=== PATIENT | male | born 1965 | race Two or more races ===

== ENCOUNTER 2016-09-17 22:20 | Inpatient (IN) | payer SELFPAY ==
[~2016-09-17] VITALS: Ht 170.2 cm; Wt 60.8 kg
[2016-09-17] MEDS ORDERED: CEFTRIAXONE 1GM BAG (ER ONLY) 50 ML IV ONE (23:00)
[2016-09-17] MEDS ORDERED: VANCOMYCIN 1 GM in IV D5W 250 ML IV ONE (23:00)
[2016-09-17] MEDS ORDERED: HYDROMORPHONE 1 MG/1 ML DISP.SYRIN IV ONE (23:00)
[2016-09-17] MEDS ORDERED: ONDANSETRON HCL/PF 4 MG/2 ML VIAL IVP ONE (23:00)
[2016-09-17] MEDS ORDERED: ONDANSETRON HCL/PF 4 MG/2 ML VIAL ONE (23:40)
[2016-09-17] MEDS ORDERED: HYDROMORPHONE 1 MG/1 ML DISP.SYRIN ONE (23:40)
[2016-09-17 23:59] LABS: BASOPHILS % (AUTO) 0.2 % (0.0-2.0); DIFF TOTAL % 100 %; EOSINOPHILS % (AUTO) 0.1 % (0.0-6.0); HEMATOCRIT 34 % (39-51); HEMOGLOBIN 11.1 g/dL (13.5-17.5); LYMPHOCYTES # (AUTO) 3.1 /CMM (0.8-4.8); LYMPHOCYTES % (AUTO) 23.1 % (20.0-44.0); MEAN CORPUSCULAR HEMOGLOBIN 26 PG (26.0-33.0); MEAN CORPUSCULAR HGB CONC 33 g/dl (31.0-36.0); MEAN CORPUSCULAR VOLUME 78 fL (80-96); MONOCYTES # (AUTO) 1.5 /CMM (0.1-1.30); MONOCYTES % (AUTO) 11.1 % (2.0-12.0); NEUTROPHILS # (AUTO) 8.8 /CMM (1.8-8.9); NEUTROPHILS % (AUTO) 65.5 % (43.0-81.0); PLATELET COUNT (AUTO) 275 /CMM (150-450); RED BLOOD CELL COUNT(AUTO) 4.31 MIL/uL (4.5-6.0); WHITE BLOOD COUNT (AUTO) 13.4 K/uL (4.3-11.0)
[2016-09-18] MEDS ORDERED: CEFTRIAXONE 1GM BAG (ER ONLY) 50 ML IV ONE (00:02)
[2016-09-18] MEDS ORDERED: IV SET PRIMARY PUMP SET 1 EA INFUS.SET MC ONE ×4 (00:02→06:15)
[2016-09-18 00:06] LABS: ANION GAP 23 (5-14); CARBON DIOXIDE 20 mmol/L (21-32); CHLORIDE 98 mmol/L (98-107); GFR 79 mL/min (>60); GLUCOSE 124 mg/dL (74-106); POTASSIUM 3.1 mmol/L (3.5-5.1); SODIUM SERUM 138 mmol/L (136-145); UREA NITROGEN, BLOOD 13 mg/dL (7-18)
[2016-09-18 00:09] LABS: INR 1.07 (0.87-1.13); PROTHROMBIN TIME 11.6 SECS (9.5-12.7)
[2016-09-18 00:12] LABS: ALANINE AMINOTRANSFERASE 66 U/L (12-78); ALBUMIN 2.7 g/dL (3.4-5.0); ASPARTATE AMINOTRANSFERASE 83 U/L (15-37); BILIRUBIN,DIRECT 0.1 mg/dL (0.0-0.2); BILIRUBIN,TOTAL 0.4 mg/dL (0.2-1.0); INDIRECT BILIRUBIN 0.3 mg/dL (0.0-1.1); TOTAL PROTEIN, SERUM 7.5 g/dL (6.4-8.2)
[2016-09-18 00:32] LABS: LACTIC ACID 3.6 mmol/L (0.4-2.0)
[2016-09-18] MEDS ORDERED: ONDANSETRON HCL/PF 4 MG/2 ML VIAL ONE (00:42)
[2016-09-18] MEDS ORDERED: HYDROMORPHONE 1 MG/1 ML DISP.SYRIN ONE ×2 (00:42→03:52)
[2016-09-18 00:50] LABS: *LACTIC ACID REFLEX FLAG YES
[2016-09-18] MEDS ORDERED: VANCOMYCIN 1 GM VIAL ONE (00:53)
[2016-09-18] MEDS ORDERED: IV SET PRIMARY 1 EA INFUS.SET MC ONE (00:53)
[2016-09-18] MEDS ORDERED: IV NS 0.9% 2,000 ML ONE (00:53)
[2016-09-18 00:54] LABS: KETONES,URINE 3+ (NEGATIVE); LEUKOCYTE ESTERASE ,URINE TRACE (NEGATIVE)
[2016-09-18 01:00] LABS: ADD UA MICROSCOPIC YES
[2016-09-18] MEDS ORDERED: ONDANSETRON HCL/PF - ER 4 MG/2 ML VIAL IV ONE (01:00)
[2016-09-18] MEDS ORDERED: IV NS 0.9% 250 ML IV ONE (01:00)
[2016-09-18] MEDS ORDERED: IV NS 0.9% 1,000 ML BAG IV ONE (01:00)
[2016-09-18] MEDS ORDERED: HYDROMORPHONE 1 MG/1 ML DISP.SYRIN IV ONE (01:00)
[2016-09-18] MEDS ORDERED: IV D5W 250 ML IV ONE (01:07)
[2016-09-18 01:09] LABS: ADD URINE CULTURE YES; RBC,URINE 0-2 /HPF (0-2)
[2016-09-18] MEDS ORDERED: MAG HYDROX/AL HYDROX/SIMETH 30 ML UDC PO PRN (02:00)
[2016-09-18] MEDS ORDERED: MAGNESIUM HYDROXIDE 30 ML UDC PO PRN (02:00)
[2016-09-18] MEDS: CEFTRIAXONE 2 G in IV D5W 100 ML IV SCH (02:00)
[2016-09-18] MEDS ORDERED: ONDANSETRON HCL/PF 4 MG/2 ML VIAL IVP PRN (02:00)
[2016-09-18] MEDS ORDERED: Z GUARD REMEDY 2 OZ OINT TP PRN (02:00)
[2016-09-18 02:30] VITALS: BP 139/67
[2016-09-18 02:49] VITALS: BP 139/67
[2016-09-18] MEDS ORDERED: IV NS 0.9% 1,000 ML ONE (03:40)
[2016-09-18] MEDS ORDERED: SECONDARY IV SET 1 EA INFUS.SET MC ONE (03:40)
[2016-09-18] MEDS ORDERED: POTASSIUM CL. PREMIX PERIPHER. 100 ML ONE (03:42)
[2016-09-18] MEDS: IV NS 0.9% 1,000 ML IV PRN ×2 (03:46→21:38)
[2016-09-18] MEDS: POTASSIUM CL. PREMIX PERIPHER. 50 ML IV SCH ×3 (03:47→05:19)
[2016-09-18] MEDS: HYDROMORPHONE 1 MG/1 ML DISP.SYRIN IV PRN ×3 (03:58→14:15)
[2016-09-18] MEDS ORDERED: MORPHINE SULFATE INJ 2 MG/ML DISP.SYRIN IV PRN (04:00)
[2016-09-18] MEDS: PANTOPRAZOLE 40 MG TABLET.DR PO SCH (07:30)
[2016-09-18] MEDS ORDERED: FEE PK DOSING 1 MIN EA MC ONE (08:01)
[2016-09-18 10:40] LABS: BASOPHILS % (AUTO) 0.5 % (0.0-2.0); DIFF TOTAL % 100 %; EOSINOPHILS % (AUTO) 0.1 % (0.0-6.0); HEMATOCRIT 31 % (39-51); HEMOGLOBIN 10.3 g/dL (13.5-17.5); LYMPHOCYTES # (AUTO) 1.4 /CMM (0.8-4.8); LYMPHOCYTES % (AUTO) 15.5 % (20.0-44.0); MEAN CORPUSCULAR HEMOGLOBIN 26 PG (26.0-33.0); MEAN CORPUSCULAR HGB CONC 33 g/dl (31.0-36.0); MEAN CORPUSCULAR VOLUME 78 fL (80-96); MONOCYTES % (AUTO) 10.8 % (2.0-12.0); NEUTROPHILS # (AUTO) 6.8 /CMM (1.8-8.9); NEUTROPHILS % (AUTO) 73.1 % (43.0-81.0); PLATELET COUNT (AUTO) 251 /CMM (150-450); RED BLOOD CELL COUNT(AUTO) 3.97 MIL/uL (4.5-6.0); WHITE BLOOD COUNT (AUTO) 9.3 K/uL (4.3-11.0)
[2016-09-18 10:53] LABS: ALBUMIN 2.4 g/dL (3.4-5.0); BILIRUBIN,TOTAL 0.8 mg/dL (0.2-1.0); CALCIUM, SERUM 7.8 mg/dL (8.5-10.1); CREATININE 0.7 mg/dL (0.6-1.3); PHOSPHORUS 2.8 mg/dL (2.5-4.9); POTASSIUM 3.2 mmol/L (3.5-5.1); TOTAL PROTEIN, SERUM 6.8 g/dL (6.4-8.2)
[2016-09-18] MEDS ORDERED: HYDROGEL DRESSING 90 GM TUBE TP PRN (11:00)
[2016-09-18 11:01] LABS: THYROID STIMULATING HORMONE 1.145 uIU/mL (0.358-3.74)
[2016-09-18] MEDS: POTASSIUM CHLORIDE 20 MEQ TAB.PRT.SR PO SCH ×2 (12:30→13:43)
[2016-09-18] MEDS ORDERED: SILVER NITRATE APPLICATOR 1 EA BOX TP ONE ×2 (13:00)
[2016-09-18] MEDS ORDERED: LIDOCAINE 1%-EPI 1:100,000 20 ML VIAL TP ONE (13:00)
[2016-09-18] MEDS: VANCOMYCIN 1 GM in IV D5W 250 ML IV SCH ×2 (13:00→13:44)
[2016-09-18] MEDS: HYDROGEL DRESSING 90 GM TUBE TP SCH (13:44)
[2016-09-18] MEDS: DAKINS QUARTER STRENGTH (0.125%) 480 ML BOTTLE TOP SCH (13:44)
[2016-09-18] MEDS ORDERED: LIDOCAINE 1%-EPI 1:100,000 50 ML VIAL IJ ONE (14:00)
[2016-09-18 16:00] VITALS: BP 134/74
[2016-09-18] MEDS: CLONIDINE HCL 0.2MG/24H PTWK 1 EA PATCH TD SCH (16:00)
[2016-09-18] MEDS: ALPRAZOLAM 0.25 MG TABLET PO SCH (16:09)
[2016-09-18] MEDS: GABAPENTIN 300 MG CAPSULE PO SCH (16:51)
[2016-09-18] MEDS: oxyCODONE IR immediate release 5 MG CAPSULE PO PRN ×2 (16:55→23:02)
[2016-09-18] MEDS ORDERED: COD LIVER OIL/ZINC OXIDE 120 GM TUBE TP SCH (17:30)
[2016-09-18 20:15] VITALS: BP 130/81
[2016-09-18] MEDS: LINEZOLID 600 MG TABLET PO SCH (21:00)
[2016-09-18] MEDS: CITALOPRAM HYDROBROMIDE 10 MG TABLET PO SCH (21:49)
[2016-09-19] MEDS ORDERED: LOPERAMIDE HCL (2 MG CAP) 2 MG CAPSULE PO PRN (01:00)
[2016-09-19] MEDS ORDERED: SECONDARY IV SET 1 EA INFUS.SET MC ONE (02:07)
[2016-09-19] MEDS ORDERED: LOPERAMIDE HCL (2 MG CAP) 2 MG CAPSULE PO ONE (02:07)
[2016-09-19] MEDS: CEFTRIAXONE 2 G in IV D5W 100 ML IV SCH (02:12)
[2016-09-19] MEDS: oxyCODONE IR immediate release 5 MG CAPSULE PO PRN ×4 (02:13→15:05)
[2016-09-19] MEDS: IV NS 0.9% 1,000 ML IV PRN ×2 (06:34→14:41)
[2016-09-19] MEDS: PANTOPRAZOLE 40 MG TABLET.DR PO SCH (06:47)
[2016-09-19] MEDS: ALPRAZOLAM 0.25 MG TABLET PO SCH ×2 (08:46→17:13)
[2016-09-19] MEDS: LINEZOLID 600 MG TABLET PO SCH ×2 (08:47→21:00)
[2016-09-19] MEDS: GABAPENTIN 300 MG CAPSULE PO SCH ×3 (08:47→17:13)
[2016-09-19] MEDS: DAKINS QUARTER STRENGTH (0.125%) 480 ML BOTTLE TOP SCH (09:00)
[2016-09-19] MEDS: HYDROGEL DRESSING 90 GM TUBE TP SCH (09:00)
[2016-09-19] MEDS: ZINC OXIDE 30 GM TUBE TP SCH (09:00)
[2016-09-19 17:27] LABS: CALCIUM, SERUM 7.6 mg/dL (8.5-10.1); CREATININE 0.7 mg/dL (0.6-1.3); POTASSIUM 3.6 mmol/L (3.5-5.1)
[2016-09-19 20:00] VITALS: BP 133/80
[2016-09-19 22:00] VITALS: BP 133/80
[2016-09-19] MEDS: CITALOPRAM HYDROBROMIDE 10 MG TABLET PO SCH (22:00)
[2016-09-20] MEDS: CEFTRIAXONE 2 G in IV D5W 100 ML IV SCH (02:29)
[2016-09-20] MEDS: oxyCODONE IR immediate release 5 MG CAPSULE PO PRN ×3 (05:50→21:09)
[2016-09-20] MEDS: PANTOPRAZOLE 40 MG TABLET.DR PO SCH (07:30)
[2016-09-20] MEDS: ALPRAZOLAM 0.25 MG TABLET PO SCH ×2 (08:54→16:44)
[2016-09-20] MEDS: LINEZOLID 600 MG TABLET PO SCH (08:54)
[2016-09-20] MEDS: GABAPENTIN 300 MG CAPSULE PO SCH ×3 (08:54→16:44)
[2016-09-20] MEDS: BOOST PLUS FOOD-CHOCLATE 237 ML BOX PO SCH (08:55)
[2016-09-20] MEDS: HYDROGEL DRESSING 90 GM TUBE TP SCH (08:57)
[2016-09-20] MEDS: DAKINS QUARTER STRENGTH (0.125%) 480 ML BOTTLE TOP SCH (08:58)
[2016-09-20] MEDS: ZINC OXIDE 30 GM TUBE TP SCH (08:58)
[2016-09-20] MEDS: IV NS 0.9% 1,000 ML IV PRN ×2 (11:15→21:10)
[2016-09-20] MEDS: LACTOBACILLUS RHAMNOSUS GG 1 EACH CAP.SPRINK PO SCH (16:44)
[2016-09-20] MEDS: SULFAMETH/TRIMETH 800/160 MG 1 UDTAB TABLET PO SCH (21:00)
[2016-09-20] MEDS: CITALOPRAM HYDROBROMIDE 10 MG TABLET PO SCH (22:00)
[2016-09-21] MEDS: oxyCODONE IR immediate release 5 MG CAPSULE PO PRN ×5 (01:07→21:21)
[2016-09-21] MEDS: CEFTRIAXONE 2 G in IV D5W 100 ML IV SCH (01:07)
[2016-09-21] MEDS: IV NS 0.9% 1,000 ML IV PRN ×2 (05:46→21:21)
[2016-09-21] MEDS: PANTOPRAZOLE 40 MG TABLET.DR PO SCH (07:23)
[2016-09-21] MEDS: BOOST PLUS FOOD-CHOCLATE 237 ML BOX PO SCH (08:54)
[2016-09-21] MEDS: GABAPENTIN 300 MG CAPSULE PO SCH ×3 (08:54→16:16)
[2016-09-21] MEDS: ALPRAZOLAM 0.25 MG TABLET PO SCH ×2 (08:54→16:16)
[2016-09-21] MEDS: SULFAMETH/TRIMETH 800/160 MG 1 UDTAB TABLET PO SCH ×2 (08:55→21:00)
[2016-09-21] MEDS: HYDROGEL DRESSING 90 GM TUBE TP SCH (08:55)
[2016-09-21] MEDS: DAKINS QUARTER STRENGTH (0.125%) 480 ML BOTTLE TOP SCH (08:55)
[2016-09-21] MEDS: LACTOBACILLUS RHAMNOSUS GG 1 EACH CAP.SPRINK PO SCH ×2 (08:55→16:16)
[2016-09-21] MEDS: ZINC OXIDE 30 GM TUBE TP SCH (08:55)
[2016-09-21 09:26] VITALS: BP 102/56
[2016-09-21 17:56] VITALS: BP 106/59
[2016-09-21 20:00] VITALS: BP 126/76
[2016-09-21] MEDS: CITALOPRAM HYDROBROMIDE 10 MG TABLET PO SCH (21:25)
[2016-09-22] MEDS: CEFTRIAXONE 2 G in IV D5W 100 ML IV SCH (02:06)
[2016-09-22] MEDS: oxyCODONE IR immediate release 5 MG CAPSULE PO PRN ×5 (05:15→22:59)
[2016-09-22] MEDS: PANTOPRAZOLE 40 MG TABLET.DR PO SCH (07:30)
[2016-09-22] MEDS: SULFAMETH/TRIMETH 800/160 MG 1 UDTAB TABLET PO SCH ×2 (09:00→21:00)
[2016-09-22] MEDS: LACTOBACILLUS RHAMNOSUS GG 1 EACH CAP.SPRINK PO SCH ×2 (09:00→16:42)
[2016-09-22] MEDS: GABAPENTIN 300 MG CAPSULE PO SCH ×3 (09:01→16:40)
[2016-09-22] MEDS: ALPRAZOLAM 0.25 MG TABLET PO SCH ×2 (09:01→16:41)
[2016-09-22] MEDS: DAKINS QUARTER STRENGTH (0.125%) 480 ML BOTTLE TOP SCH (09:03)
[2016-09-22] MEDS: HYDROGEL DRESSING 90 GM TUBE TP SCH (09:04)
[2016-09-22] MEDS: ZINC OXIDE 30 GM TUBE TP SCH (09:04)
[2016-09-22] MEDS: BOOST PLUS FOOD-CHOCLATE 237 ML BOX PO SCH (09:19)
[2016-09-22] MEDS ORDERED: BISACODYL SUPP (10 MG) 10 MG/SUPP.RECT SUPP.RECT RC PRN (15:30)
[2016-09-22 20:00] VITALS: BP 136/86
[2016-09-22] MEDS: CITALOPRAM HYDROBROMIDE 10 MG TABLET PO SCH (21:44)
[2016-09-23] MEDS: oxyCODONE IR immediate release 5 MG CAPSULE PO PRN ×5 (03:08→23:44)
[2016-09-23] MEDS: PANTOPRAZOLE 40 MG TABLET.DR PO SCH (07:30)
[2016-09-23 08:00] VITALS: BP 109/66
[2016-09-23] MEDS: ALPRAZOLAM 0.25 MG TABLET PO SCH ×2 (08:01→16:12)
[2016-09-23] MEDS: GABAPENTIN 300 MG CAPSULE PO SCH ×3 (08:01→16:12)
[2016-09-23] MEDS: LACTOBACILLUS RHAMNOSUS GG 1 EACH CAP.SPRINK PO SCH ×2 (08:03→16:12)
[2016-09-23] MEDS: DAKINS QUARTER STRENGTH (0.125%) 480 ML BOTTLE TOP SCH (08:03)
[2016-09-23] MEDS: HYDROGEL DRESSING 90 GM TUBE TP SCH (08:03)
[2016-09-23] MEDS: ZINC OXIDE 30 GM TUBE TP SCH (08:03)
[2016-09-23] MEDS: SULFAMETH/TRIMETH 800/160 MG 1 UDTAB TABLET PO SCH ×2 (08:03→21:00)
[2016-09-23] MEDS: BOOST PLUS FOOD-CHOCLATE 237 ML BOX PO SCH (10:55)
[2016-09-23] MEDS ORDERED: IV SET PRIMARY PUMP SET 1 EA INFUS.SET MC ONE (11:47)
[2016-09-23] MEDS: IV NS 0.9% 1,000 ML IV PRN ×2 (12:36→22:04)
[2016-09-23 16:00] VITALS: BP 107/55
[2016-09-23 20:00] VITALS: BP 113/63
[2016-09-23] MEDS: CITALOPRAM HYDROBROMIDE 10 MG TABLET PO SCH (22:00)
[2016-09-24] MEDS: IV NS 0.9% 1,000 ML IV PRN ×2 (06:23→17:05)
[2016-09-24] MEDS: oxyCODONE IR immediate release 5 MG CAPSULE PO PRN ×5 (06:23→23:27)
[2016-09-24 08:04] VITALS: BP 115/64
[2016-09-24] MEDS: SULFAMETH/TRIMETH 800/160 MG 1 UDTAB TABLET PO SCH ×2 (08:27→21:00)
[2016-09-24] MEDS: LACTOBACILLUS RHAMNOSUS GG 1 EACH CAP.SPRINK PO SCH ×2 (08:27→17:01)
[2016-09-24] MEDS: PANTOPRAZOLE 40 MG TABLET.DR PO SCH (08:27)
[2016-09-24] MEDS: ALPRAZOLAM 0.25 MG TABLET PO SCH ×2 (08:27→17:00)
[2016-09-24] MEDS: GABAPENTIN 300 MG CAPSULE PO SCH ×3 (08:27→17:00)
[2016-09-24] MEDS: ZINC OXIDE 30 GM TUBE TP SCH (08:27)
[2016-09-24] MEDS: BOOST PLUS FOOD-CHOCLATE 237 ML BOX PO SCH (08:30)
[2016-09-24] MEDS: DAKINS QUARTER STRENGTH (0.125%) 480 ML BOTTLE TOP SCH (08:30)
[2016-09-24] MEDS: HYDROGEL DRESSING 90 GM TUBE TP SCH (08:34)
[2016-09-24 09:21] VITALS: BP 115/64
[2016-09-24 15:41] VITALS: BP 137/70
[2016-09-24 20:00] VITALS: BP 131/70
[2016-09-24] MEDS: CITALOPRAM HYDROBROMIDE 10 MG TABLET PO SCH (21:34)
[2016-09-25] MEDS: IV NS 0.9% 1,000 ML IV PRN ×3 (00:38→16:34)
[2016-09-25] MEDS: oxyCODONE IR immediate release 5 MG CAPSULE PO PRN ×5 (03:38→20:35)
[2016-09-25 08:00] VITALS: BP 137/85
[2016-09-25] MEDS: GABAPENTIN 300 MG CAPSULE PO SCH ×3 (08:12→16:29)
[2016-09-25] MEDS: PANTOPRAZOLE 40 MG TABLET.DR PO SCH (08:12)
[2016-09-25] MEDS: LACTOBACILLUS RHAMNOSUS GG 1 EACH CAP.SPRINK PO SCH ×2 (08:12→16:29)
[2016-09-25] MEDS: ALPRAZOLAM 0.25 MG TABLET PO SCH ×2 (08:12→16:29)
[2016-09-25] MEDS: HYDROGEL DRESSING 90 GM TUBE TP SCH (08:13)
[2016-09-25] MEDS: BOOST PLUS FOOD-CHOCLATE 237 ML BOX PO SCH (08:16)
[2016-09-25] MEDS: DAKINS QUARTER STRENGTH (0.125%) 480 ML BOTTLE TOP SCH (08:16)
[2016-09-25] MEDS: SULFAMETH/TRIMETH 800/160 MG 1 UDTAB TABLET PO SCH ×2 (08:17→20:37)
[2016-09-25 08:33] VITALS: BP 137/85
[2016-09-25 16:00] VITALS: BP 134/79
[2016-09-25] MEDS: ZINC OXIDE 30 GM TUBE TP SCH (16:28)
[2016-09-25] MEDS: CLONIDINE HCL 0.2MG/24H PTWK 1 EA PATCH TD SCH (16:29)
[2016-09-25 20:00] VITALS: BP 149/82
[2016-09-25] MEDS: CITALOPRAM HYDROBROMIDE 10 MG TABLET PO SCH (22:00)
[2016-09-25] MEDS ORDERED: HYDROMORPHONE 1 MG/1 ML DISP.SYRIN IV ONE (23:00)
[2016-09-25] MEDS ORDERED: HYDROMORPHONE 1 MG/1 ML DISP.SYRIN IV PRN (23:00)
[2016-09-25] MEDS ORDERED: HYDROMORPHONE 1 MG/1 ML DISP.SYRIN ONE (23:08)
[2016-09-26] MEDS: oxyCODONE IR immediate release 5 MG CAPSULE PO PRN ×7 (01:00→21:36)
[2016-09-26] MEDS: PANTOPRAZOLE 40 MG TABLET.DR PO SCH (07:30)
[2016-09-26 08:00] VITALS: BP 150/79
[2016-09-26] MEDS ORDERED: IV SET PRIMARY PUMP SET 1 EA INFUS.SET MC ONE (08:16)
[2016-09-26] MEDS: SULFAMETH/TRIMETH 800/160 MG 1 UDTAB TABLET PO SCH ×2 (08:41→21:36)
[2016-09-26] MEDS: DAKINS QUARTER STRENGTH (0.125%) 480 ML BOTTLE TOP SCH (08:42)
[2016-09-26] MEDS: HYDROGEL DRESSING 90 GM TUBE TP SCH (08:42)
[2016-09-26] MEDS: ALPRAZOLAM 0.25 MG TABLET PO SCH ×2 (08:42→16:24)
[2016-09-26] MEDS: GABAPENTIN 300 MG CAPSULE PO SCH ×3 (08:42→16:24)
[2016-09-26] MEDS: BOOST PLUS FOOD-CHOCLATE 237 ML BOX PO SCH (08:42)
[2016-09-26] MEDS: ZINC OXIDE 30 GM TUBE TP SCH (08:42)
[2016-09-26] MEDS: LACTOBACILLUS RHAMNOSUS GG 1 EACH CAP.SPRINK PO SCH ×2 (08:42→16:45)
[2016-09-26 16:00] VITALS: BP 96/50
[2016-09-26 21:00] VITALS: BP 112/67
[2016-09-26] MEDS: IV NS 0.9% 1,000 ML IV PRN (21:41)
[2016-09-26] MEDS: CITALOPRAM HYDROBROMIDE 10 MG TABLET PO SCH (22:00)
[2016-09-27] MEDS: oxyCODONE IR immediate release 5 MG CAPSULE PO PRN ×5 (01:30→17:28)
[2016-09-27] MEDS ORDERED: IBUPROFEN 400 MG TABLET PO ONE (03:30)
[2016-09-27] MEDS ORDERED: IBUPROFEN 400 MG TABLET ONE (03:45)
[2016-09-27 08:00] VITALS: BP 102/51
[2016-09-27] MEDS: ZINC OXIDE 30 GM TUBE TP SCH (09:00)
[2016-09-27] MEDS: HYDROGEL DRESSING 90 GM TUBE TP SCH (09:00)
[2016-09-27] MEDS: DAKINS QUARTER STRENGTH (0.125%) 480 ML BOTTLE TOP SCH (09:00)
[2016-09-27] MEDS: PANTOPRAZOLE 40 MG TABLET.DR PO SCH (09:07)
[2016-09-27] MEDS: BOOST PLUS FOOD-CHOCLATE 237 ML BOX PO SCH (09:07)
[2016-09-27] MEDS: SULFAMETH/TRIMETH 800/160 MG 1 UDTAB TABLET PO SCH (09:07)
[2016-09-27] MEDS: GABAPENTIN 300 MG CAPSULE PO SCH ×3 (09:07→17:00)
[2016-09-27] MEDS: LACTOBACILLUS RHAMNOSUS GG 1 EACH CAP.SPRINK PO SCH ×2 (09:07→17:00)
[2016-09-27] MEDS: ALPRAZOLAM 0.25 MG TABLET PO SCH ×2 (09:08→17:00)
[2016-09-27] MEDS: IV NS 0.9% 1,000 ML IV PRN (10:58)
== END 2016-09-27 17:30 | disposition home or self-care (01) | DRG 871 ==
LOC: ER 22:21 → MEDSG2 09-18 01:40
PROVIDERS: ADMIT Contractor; ATTEND Contractor
DX: A41.9 Sepsis, unspecified organism (principal); E43 Unspecified severe protein-calorie malnutrition; L89.324 Pressure ulcer of left buttock, stage 4; G82.20 Paraplegia, unspecified; E87.2 Acidosis; N39.0 Urinary tract infection, site not specified; R45.851 Suicidal ideations; R65.20 Severe sepsis without septic shock; E87.6 Hypokalemia; F32.9 Major depressive disorder, single episode, unspecified; F17.210 Nicotine dependence, cigarettes, uncomplicated; G89.4 Chronic pain syndrome; Z99.3 Dependence on wheelchair; Z59.0 Homelessness; Z87.440 Personal history of urinary (tract) infections; E88.09 Other disorders of plasma-protein metabolism, not elsewhere classified; F19.10 Other psychoactive substance abuse, uncomplicated; N31.9 Neuromuscular dysfunction of bladder, unspecified; F43.10 Post-traumatic stress disorder, unspecified; L98.9 Disorder of the skin and subcutaneous tissue, unspecified; S81.802A Unspecified open wound, left lower leg, initial encounter; S81.801A Unspecified open wound, right lower leg, initial encounter; X58.XXXA Exposure to other specified factors, initial encounter; Y93.9 Activity, unspecified; Y92.9 Unspecified place or not applicable; Y99.9 Unspecified external cause status; F29 Unspecified psychosis not due to a substance or known physiological condition; B96.20 Unspecified Escherichia coli [E. coli] as the cause of diseases classified elsewhere; B95.62 Methicillin resistant Staphylococcus aureus infection as the cause of diseases classified elsewhere; B96.4 Proteus (mirabilis) (morganii) as the cause of diseases classified elsewhere; S31.000A Unspecified open wound of lower back and pelvis without penetration into retroperitoneum, initial encounter
CPT/HCPCS: 36415; 71010-TC; 80048-TC; 80053-TC; 80061-TC; 80076-TC; 80202-TC; 81000-TC; 83605-TC; 83735-TC; 84100-TC; 84443-TC; 85025-TC; 85730-TC; 87040-TC; 87070-TC; 87081-TC; 87086-TC; 87186-TC; A4606; A6248; A6402; J0696; J1170; J2405; J3370; J3480; J3490; J7030; J7050; J7060; Z7610

== ENCOUNTER 2016-09-30 08:04 | Inpatient (IN) | payer SELFPAY ==
[~2016-09-30] VITALS: Ht 175.3 cm; Wt 82.1 kg
[2016-09-30] MEDS ORDERED: IV NS 0.9% 500 ML BAG IV ONE (08:30)
[2016-09-30 09:13] LABS: BASOPHILS # (AUTO) 0.1 /CMM (0.0-0.2); BASOPHILS % (AUTO) 0.8 % (0.0-2.0); DIFF TOTAL % 100 %; HEMATOCRIT 34 % (39-51); HEMOGLOBIN 11.3 g/dL (13.5-17.5); LYMPHOCYTES # (AUTO) 1.3 /CMM (0.8-4.8); LYMPHOCYTES % (AUTO) 9.3 % (20.0-44.0); MEAN CORPUSCULAR HEMOGLOBIN 26 PG (26.0-33.0); MEAN CORPUSCULAR HGB CONC 33 g/dl (31.0-36.0); MEAN CORPUSCULAR VOLUME 78 fL (80-96); MONOCYTES # (AUTO) 1.4 /CMM (0.1-1.30); NEUTROPHILS # (AUTO) 10.9 /CMM (1.8-8.9); NEUTROPHILS % (AUTO) 79.9 % (43.0-81.0); PLATELET COUNT (AUTO) 294 /CMM (150-450); RED BLOOD CELL COUNT(AUTO) 4.41 MIL/uL (4.5-6.0); WHITE BLOOD COUNT (AUTO) 13.6 K/uL (4.3-11.0)
[2016-09-30 09:20] LABS: KETONES,URINE 1+ (NEGATIVE); LEUKOCYTE ESTERASE ,URINE 2+ (NEGATIVE); PH,URINE 5.5 (5.0-8.0)
[2016-09-30 09:22] LABS: ANION GAP 17 (5-14); CARBON DIOXIDE 25 mmol/L (21-32); CHLORIDE 92 mmol/L (98-107); CREATININE 0.8 mg/dL (0.6-1.3); GFR 103 mL/min (>60); GLUCOSE 82 mg/dL (74-106); POTASSIUM 4.1 mmol/L (3.5-5.1); SODIUM SERUM 129 mmol/L (136-145); UREA NITROGEN, BLOOD 19 mg/dL (7-18)
[2016-09-30 09:23] LABS: ADD UA MICROSCOPIC YES
[2016-09-30 09:28] LABS: ADD URINE CULTURE YES; RBC,URINE 21-50 /HPF (0-2); WBC,URINE 51-80 /HPF (0-3)
[2016-09-30 09:28] LABS: ALANINE AMINOTRANSFERASE 103 U/L (12-78); ALBUMIN 2.9 g/dL (3.4-5.0); ASPARTATE AMINOTRANSFERASE 230 U/L (15-37); BILIRUBIN,DIRECT 0.1 mg/dL (0.0-0.2); BILIRUBIN,TOTAL 0.5 mg/dL (0.2-1.0); INDIRECT BILIRUBIN 0.4 mg/dL (0.0-1.1); TOTAL PROTEIN, SERUM 8.3 g/dL (6.4-8.2)
[2016-09-30 09:29] LABS: MUCUS,URINE Few /LPF (None Seen)
[2016-09-30 09:30] LABS: ACETAMINOPHEN 0 ug/ml (10-30); SALICYLATE 2.2 mg/dL (2.8-20.0)
[2016-09-30 09:32] LABS: PHENCYCLIDINE SCREEN,URINE NEGATIVE (NEGATIVE)
[2016-09-30 09:33] LABS: CANNABINOID, URINE POSITIVE (NEGATIVE)
[2016-09-30] MEDS ORDERED: IV SET PRIMARY PUMP SET 1 EA INFUS.SET MC ONE ×2 (09:38→12:49)
[2016-09-30] MEDS ORDERED: IV SET PRIMARY 1 EA INFUS.SET MC ONE (09:38)
[2016-09-30] MEDS ORDERED: IV NS 0.9% 500 ML IV ONE (09:38)
[2016-09-30] MEDS ORDERED: IV NS 0.9% 1,000 ML ONE (09:38)
[2016-09-30] MEDS: PIPERACILLIN /TAZOBACTAM 3.375 G in IV D5W 50 ML IV ONE ×2 (09:52→10:20)
[2016-09-30] MEDS ORDERED: VANCOMYCIN 1 GM in IV D5W 250 ML IV ONE (10:00)
[2016-09-30] MEDS ORDERED: IV NS 0.9% 1,000 ML BAG IV ONE ×2 (10:00→11:00)
[2016-09-30 10:33] LABS: LACTIC ACID 2.4 mmol/L (0.4-2.0)
[2016-09-30 11:06] LABS: *LACTIC ACID REFLEX FLAG YES
[2016-09-30 11:45] VITALS: BP 118/65
[2016-09-30] MEDS ORDERED: ZOLPIDEM TARTRATE 5 MG TABLET PO PRN (12:30)
[2016-09-30] MEDS ORDERED: HYDROCODONE/APAP 5/325MG 1 EACH TABLET PO PRN ×2 (12:30→13:00)
[2016-09-30] MEDS ORDERED: ACETAMINOPHEN 325 MG TABLET PO PRN (12:30)
[2016-09-30] MEDS ORDERED: MAGNESIUM HYDROXIDE 30 ML UDC PO PRN (12:30)
[2016-09-30] MEDS: PANTOPRAZOLE 40 MG TABLET.DR PO SCH ×2 (12:30→12:56)
[2016-09-30] MEDS ORDERED: ACETAMINOPHEN 650 MG/SUPP.RECT RC PRN (12:30)
[2016-09-30] MEDS ORDERED: Z GUARD REMEDY 2 OZ OINT TP PRN (12:30)
[2016-09-30] MEDS ORDERED: MAG HYDROX/AL HYDROX/SIMETH 30 ML UDC PO PRN (12:30)
[2016-09-30] MEDS ORDERED: FEE PK DOSING 1 MIN EA MC ONE (12:49)
[2016-09-30] MEDS ORDERED: PIPERACILLIN /TAZOBACTAM 4.5 G in IV D5W 50 ML IV SCH (13:00)
[2016-09-30] MEDS: IV NS 0.9% 1,000 ML IV PRN (15:30)
[2016-09-30 16:00] VITALS: BP 105/60
[2016-09-30] MEDS ORDERED: PIPERACILLIN /TAZOBACTAM 3.375 G in IV D5W 50 ML IV SCH (18:00)
[2016-09-30] MEDS: HYDROMORPHONE 1 MG/1 ML DISP.SYRIN IV PRN ×2 (18:11→22:01)
[2016-09-30] MEDS ORDERED: VANCOMYCIN 1 GM in IV D5W 250 ML IV SCH (20:00)
[2016-09-30] MEDS: SULFAMETH/TRIMETH 800/160 MG 1 UDTAB TABLET PO SCH (21:49)
[2016-10-01] MEDS: HYDROMORPHONE 1 MG/1 ML DISP.SYRIN IV PRN ×5 (03:49→21:25)
[2016-10-01] MEDS: IV NS 0.9% 1,000 ML IV PRN (03:54)
[2016-10-01 08:00] VITALS: BP 105/57
[2016-10-01] MEDS: PANTOPRAZOLE 40 MG TABLET.DR PO SCH (10:19)
[2016-10-01] MEDS: SULFAMETH/TRIMETH 800/160 MG 1 UDTAB TABLET PO SCH ×2 (10:19→21:25)
[2016-10-01 11:14] LABS: ALBUMIN 2.1 g/dL (3.4-5.0); BILIRUBIN,TOTAL 0.3 mg/dL (0.2-1.0); CREATININE 0.5 mg/dL (0.6-1.3); PHOSPHORUS 2.9 mg/dL (2.5-4.9); POTASSIUM 3.7 mmol/L (3.5-5.1); TOTAL PROTEIN, SERUM 6.6 g/dL (6.4-8.2)
[2016-10-01 11:57] LABS: BASOPHILS % (AUTO) 0.2 % (0.0-2.0); DIFF TOTAL % 100 %; EOSINOPHILS % (AUTO) 0.3 % (0.0-6.0); HEMATOCRIT 31 % (39-51); HEMOGLOBIN 9.9 g/dL (13.5-17.5); LYMPHOCYTES # (AUTO) 1.1 /CMM (0.8-4.8); LYMPHOCYTES % (AUTO) 17.9 % (20.0-44.0); MEAN CORPUSCULAR HEMOGLOBIN 26 PG (26.0-33.0); MEAN CORPUSCULAR HGB CONC 32 g/dl (31.0-36.0); MEAN CORPUSCULAR VOLUME 79 fL (80-96); MONOCYTES # (AUTO) 0.6 /CMM (0.1-1.30); MONOCYTES % (AUTO) 8.6 % (2.0-12.0); NEUTROPHILS # (AUTO) 4.7 /CMM (1.8-8.9); PLATELET COUNT (AUTO) 237 /CMM (150-450); RED BLOOD CELL COUNT(AUTO) 3.87 MIL/uL (4.5-6.0); WHITE BLOOD COUNT (AUTO) 6.4 K/uL (4.3-11.0)
[2016-10-01 16:00] VITALS: BP 104/40
[2016-10-01 20:00] VITALS: BP 110/59
[2016-10-01] MEDS ORDERED: LOPERAMIDE HCL (2 MG CAP) 2 MG CAPSULE PO PRN (23:00)
[2016-10-02] MEDS: HYDROMORPHONE 1 MG/1 ML DISP.SYRIN IV PRN ×6 (01:16→22:14)
[2016-10-02] MEDS: IV NS 0.9% 1,000 ML IV PRN ×2 (05:32→20:06)
[2016-10-02 08:00] VITALS: BP 101/63
[2016-10-02 08:57] LABS: CREATININE 0.6 mg/dL (0.6-1.3); POTASSIUM 3.3 mmol/L (3.5-5.1)
[2016-10-02] MEDS: SULFAMETH/TRIMETH 800/160 MG 1 UDTAB TABLET PO SCH (09:45)
[2016-10-02] MEDS: PANTOPRAZOLE 40 MG TABLET.DR PO SCH (09:45)
[2016-10-02] MEDS ORDERED: POTASSIUM CHLORIDE 20 MEQ POWDER PACKET PO ONE (10:00)
[2016-10-02] MEDS ORDERED: HYDROGEL DRESSING 90 GM TUBE TP PRN (10:00)
[2016-10-02 16:00] VITALS: BP 100/50
[2016-10-02] MEDS: DULOXETINE HCL 30 MG CAPSULE.DR PO SCH ×2 (16:00→18:18)
[2016-10-02] MEDS: DAKINS QUARTER STRENGTH (0.125%) 480 ML BOTTLE TOP SCH (18:41)
[2016-10-02] MEDS: HYDROGEL DRESSING 90 GM TUBE TP SCH (18:41)
[2016-10-02 20:00] VITALS: BP 109/56
[2016-10-02] MEDS: LORATADINE 10 MG TABLET PO SCH (20:01)
[2016-10-03] MEDS: HYDROMORPHONE 1 MG/1 ML DISP.SYRIN IV PRN ×5 (03:32→21:31)
[2016-10-03] MEDS: IV NS 0.9% 1,000 ML IV PRN (07:02)
[2016-10-03] MEDS: PANTOPRAZOLE 40 MG TABLET.DR PO SCH (07:30)
[2016-10-03 08:00] VITALS: BP 97/59
[2016-10-03 08:11] LABS: CALCIUM, SERUM 8.1 mg/dL (8.5-10.1); CREATININE 0.5 mg/dL (0.6-1.3); POTASSIUM 3.3 mmol/L (3.5-5.1)
[2016-10-03] MEDS: LORATADINE 10 MG TABLET PO SCH (09:00)
[2016-10-03] MEDS: DULOXETINE HCL 30 MG CAPSULE.DR PO SCH (09:00)
[2016-10-03] MEDS ORDERED: POTASSIUM CHLORIDE 20 MEQ POWDER PACKET PO ONE (10:00)
[2016-10-03] MEDS: oxyCODONE IR immediate release 5 MG CAPSULE PO PRN (13:33)
[2016-10-03 16:00] VITALS: BP 119/73
[2016-10-03 16:05] VITALS: BP 119/73
[2016-10-03] MEDS: HYDROGEL DRESSING 90 GM TUBE TP SCH (16:59)
[2016-10-03] MEDS: DAKINS QUARTER STRENGTH (0.125%) 480 ML BOTTLE TOP SCH (16:59)
[2016-10-03] MEDS ORDERED: DOSING PER PHARMACY-AMIKACI IV XX PRN (17:30)
[2016-10-03] MEDS ORDERED: SECONDARY IV SET 1 EA INFUS.SET MC ONE (18:48)
[2016-10-03] MEDS: AMIKACIN 1,000 MG in IV D5W 100 ML IV SCH (19:01)
[2016-10-03 20:00] VITALS: BP 101/47
[2016-10-04] MEDS: IV NS 0.9% 1,000 ML IV PRN (01:27)
[2016-10-04] MEDS: HYDROMORPHONE 1 MG/1 ML DISP.SYRIN IV PRN ×5 (01:28→21:30)
[2016-10-04 03:27] LABS: CALCIUM, SERUM 7.9 mg/dL (8.5-10.1); CREATININE 0.6 mg/dL (0.6-1.3); POTASSIUM 3.8 mmol/L (3.5-5.1)
[2016-10-04 08:00] VITALS: BP 116/69
[2016-10-04] MEDS: LORATADINE 10 MG TABLET PO SCH (08:19)
[2016-10-04] MEDS: PANTOPRAZOLE 40 MG TABLET.DR PO SCH (08:19)
[2016-10-04] MEDS: DULOXETINE HCL 30 MG CAPSULE.DR PO SCH (08:19)
[2016-10-04] MEDS: DAKINS QUARTER STRENGTH (0.125%) 480 ML BOTTLE TOP SCH (08:22)
[2016-10-04] MEDS: HYDROGEL DRESSING 90 GM TUBE TP SCH (08:22)
[2016-10-04] MEDS: ALPRAZOLAM 0.25 MG TABLET PO SCH ×2 (09:17→16:09)
[2016-10-04] MEDS: oxyCODONE IR immediate release 5 MG CAPSULE PO PRN (15:24)
[2016-10-04 16:00] VITALS: BP 93/53
[2016-10-04] MEDS: AMIKACIN 1,000 MG in IV D5W 100 ML IV SCH (18:26)
[2016-10-04 20:00] VITALS: BP 97/60
[2016-10-04 21:00] VITALS: BP 116/71
[2016-10-05] MEDS: HYDROMORPHONE 1 MG/1 ML DISP.SYRIN IV PRN ×5 (01:47→21:04)
[2016-10-05] MEDS: IV NS 0.9% 1,000 ML IV PRN ×2 (01:54→18:42)
[2016-10-05] MEDS: oxyCODONE IR immediate release 5 MG CAPSULE PO PRN ×6 (03:23→20:14)
[2016-10-05 08:00] VITALS: BP 120/75
[2016-10-05 08:41] LABS: CALCIUM, SERUM 8.2 mg/dL (8.5-10.1); CREATININE 0.6 mg/dL (0.6-1.3); POTASSIUM 3.8 mmol/L (3.5-5.1)
[2016-10-05] MEDS: ALPRAZOLAM 0.25 MG TABLET PO SCH ×2 (08:44→16:56)
[2016-10-05] MEDS: PANTOPRAZOLE 40 MG TABLET.DR PO SCH (08:45)
[2016-10-05] MEDS: DULOXETINE HCL 30 MG CAPSULE.DR PO SCH (08:45)
[2016-10-05] MEDS: LORATADINE 10 MG TABLET PO SCH (08:45)
[2016-10-05] MEDS: HYDROGEL DRESSING 90 GM TUBE TP SCH (09:58)
[2016-10-05] MEDS: DAKINS QUARTER STRENGTH (0.125%) 480 ML BOTTLE TOP SCH (09:59)
[2016-10-05] MEDS ORDERED: BISACODYL SUPP (10 MG) 10 MG/SUPP.RECT SUPP.RECT RC PRN (11:00)
[2016-10-05 16:00] VITALS: BP 99/62
[2016-10-05] MEDS: AMIKACIN 1,000 MG in IV D5W 100 ML IV SCH (18:37)
[2016-10-05 20:00] VITALS: BP 98/56
[2016-10-06] MEDS: oxyCODONE IR immediate release 5 MG CAPSULE PO PRN ×5 (00:30→21:59)
[2016-10-06] MEDS: HYDROMORPHONE 1 MG/1 ML DISP.SYRIN IV PRN ×6 (01:40→21:40)
[2016-10-06] MEDS: IV NS 0.9% 1,000 ML IV PRN ×2 (05:32→21:39)
[2016-10-06 08:00] VITALS: BP_SYST 101; BP_DIAS 62; BP_DIAS 70
[2016-10-06 08:05] VITALS: BP 114/72
[2016-10-06] MEDS: ALPRAZOLAM 0.25 MG TABLET PO SCH ×2 (08:07→16:00)
[2016-10-06] MEDS: LORATADINE 10 MG TABLET PO SCH (08:08)
[2016-10-06] MEDS: DULOXETINE HCL 30 MG CAPSULE.DR PO SCH (08:08)
[2016-10-06] MEDS: PANTOPRAZOLE 40 MG TABLET.DR PO SCH (08:08)
[2016-10-06] MEDS: HYDROGEL DRESSING 90 GM TUBE TP SCH (08:09)
[2016-10-06] MEDS: DAKINS QUARTER STRENGTH (0.125%) 480 ML BOTTLE TOP SCH (08:09)
[2016-10-06 09:35] VITALS: BP 113/67
[2016-10-06 16:00] VITALS: BP 115/69
[2016-10-06] MEDS: AMIKACIN 1,000 MG in IV D5W 100 ML IV SCH (19:17)
[2016-10-06 19:53] VITALS: BP 113/68
[2016-10-07] MEDS: HYDROMORPHONE 1 MG/1 ML DISP.SYRIN IV PRN ×5 (01:26→17:33)
[2016-10-07] MEDS: oxyCODONE IR immediate release 5 MG CAPSULE PO PRN ×4 (04:08→22:47)
[2016-10-07] MEDS: PANTOPRAZOLE 40 MG TABLET.DR PO SCH (07:02)
[2016-10-07 07:59] LABS: CALCIUM, SERUM 8.3 mg/dL (8.5-10.1); CREATININE 0.6 mg/dL (0.6-1.3); POTASSIUM 3.9 mmol/L (3.5-5.1)
[2016-10-07 08:00] VITALS: BP 133/82
[2016-10-07] MEDS: ALPRAZOLAM 0.25 MG TABLET PO SCH ×2 (09:05→16:27)
[2016-10-07] MEDS: DULOXETINE HCL 30 MG CAPSULE.DR PO SCH (09:06)
[2016-10-07] MEDS: LORATADINE 10 MG TABLET PO SCH (09:06)
[2016-10-07] MEDS: DAKINS QUARTER STRENGTH (0.125%) 480 ML BOTTLE TOP SCH (09:07)
[2016-10-07] MEDS: HYDROGEL DRESSING 90 GM TUBE TP SCH (09:07)
[2016-10-07] MEDS: IV NS 0.9% 1,000 ML IV PRN (10:51)
[2016-10-07 16:00] VITALS: BP 92/59
[2016-10-07] MEDS ORDERED: oxyCODONE IR immediate release 5 MG CAPSULE PO PRN (18:00)
[2016-10-07] MEDS: AMIKACIN 1,000 MG in IV D5W 100 ML IV SCH (18:07)
[2016-10-07 20:00] VITALS: BP_SYST 107; BP_SYST 110; BP_DIAS 66
[2016-10-07] MEDS: oxyCODONE HCL SR 10MG TAB.SR.12H PO SCH (21:12)
[2016-10-08 04:00] VITALS: BP 113/69
[2016-10-08] MEDS: HYDROMORPHONE 1 MG/1 ML DISP.SYRIN IV PRN ×2 (04:36→12:02)
[2016-10-08] MEDS: AMIKACIN 1,000 MG in IV D5W 100 ML IV SCH (06:15)
[2016-10-08] MEDS: IV NS 0.9% 1,000 ML IV PRN (06:15)
[2016-10-08] MEDS: PANTOPRAZOLE 40 MG TABLET.DR PO SCH (07:56)
[2016-10-08] MEDS: oxyCODONE IR immediate release 5 MG CAPSULE PO PRN ×2 (07:56→14:00)
[2016-10-08 08:00] VITALS: BP 117/72
[2016-10-08 08:30] LABS: CALCIUM, SERUM 8.3 mg/dL (8.5-10.1); CREATININE 0.6 mg/dL (0.6-1.3); POTASSIUM 4.3 mmol/L (3.5-5.1)
[2016-10-08] MEDS: LORATADINE 10 MG TABLET PO SCH (08:44)
[2016-10-08] MEDS: oxyCODONE HCL SR 10MG TAB.SR.12H PO SCH (08:45)
[2016-10-08] MEDS: ALPRAZOLAM 0.25 MG TABLET PO SCH ×2 (08:45→16:09)
[2016-10-08] MEDS: DAKINS QUARTER STRENGTH (0.125%) 480 ML BOTTLE TOP SCH (08:46)
[2016-10-08] MEDS: DULOXETINE HCL 30 MG CAPSULE.DR PO SCH (08:46)
[2016-10-08] MEDS: HYDROGEL DRESSING 90 GM TUBE TP SCH (08:46)
[2016-10-08 16:00] VITALS: BP_SYST 106; BP_SYST 137; BP_DIAS 57; BP_DIAS 82
== END 2016-10-08 17:10 | disposition home or self-care (01) | DRG 871 ==
LOC: ER 08:05 → MED 11:32
PROVIDERS: ADMIT Internal Medicine; ATTEND Internal Medicine
PROC: 05H633Z Insertion of Infusion Device into Left Subclavian Vein, Percutaneous Approach (ICD-10-PCS; principal; 2016-10-03)
DX: A41.9 Sepsis, unspecified organism (principal); E43 Unspecified severe protein-calorie malnutrition; L89.324 Pressure ulcer of left buttock, stage 4; L89.153 Pressure ulcer of sacral region, stage 3; G82.20 Paraplegia, unspecified; N39.0 Urinary tract infection, site not specified; E87.2 Acidosis; R45.851 Suicidal ideations; B96.20 Unspecified Escherichia coli [E. coli] as the cause of diseases classified elsewhere; D64.9 Anemia, unspecified; E87.6 Hypokalemia; F32.9 Major depressive disorder, single episode, unspecified; G89.4 Chronic pain syndrome; R65.20 Severe sepsis without septic shock; Z59.0 Homelessness; Z87.440 Personal history of urinary (tract) infections; F19.10 Other psychoactive substance abuse, uncomplicated; E88.09 Other disorders of plasma-protein metabolism, not elsewhere classified; L89.620 Pressure ulcer of left heel, unstageable; L89.610 Pressure ulcer of right heel, unstageable; F29 Unspecified psychosis not due to a substance or known physiological condition; F43.21 Adjustment disorder with depressed mood; N31.9 Neuromuscular dysfunction of bladder, unspecified; L27.1 Localized skin eruption due to drugs and medicaments taken internally; T37.0X5A Adverse effect of sulfonamides, initial encounter; Y92.89 Other specified places as the place of occurrence of the external cause; V89.2XXS Person injured in unspecified motor-vehicle accident, traffic, sequela; Z68.26 Body mass index [BMI] 26.0-26.9, adult; F17.210 Nicotine dependence, cigarettes, uncomplicated
CPT/HCPCS: 36415; 36569; 71010-TC; 80048-TC; 80053-TC; 80061-TC; 80076-TC; 80150; 80305; 81000-TC; 83605-TC; 83735-TC; 84100-TC; 84484-TC; 85025-TC; 87040-TC; 87081-TC; 87086-TC; 87186-TC; A4606; A6248; A6253; A6402; A6403; C1751; G6038-TC; G6039-TC; G6040-TC; J0278; J1170; J2543; J3370; J7030; J7040; J7060; Z7610

== ENCOUNTER 2016-11-27 14:47 | Emergency (ER) | payer SELFPAY ==
[~2016-11-27] VITALS: Ht 175.3 cm; Wt 81.6 kg
[2016-11-27 15:46] VITALS: BP 142/90
[2016-11-27] MEDS ORDERED: IV NS 0.9% 1,000 ML BAG IV ONE (16:00)
== END 2016-11-27 16:19 | disposition left against medical advice (07) ==
LOC: ER 14:49
DX: R52 Pain, unspecified (principal); F17.200 Nicotine dependence, unspecified, uncomplicated; G82.20 Paraplegia, unspecified; Z88.6 Allergy status to analgesic agent; Z88.2 Allergy status to sulfonamides; Z88.8 Allergy status to other drugs, medicaments and biological substances
CPT/HCPCS: 93005; 99284; A4606; Z7610